=== PATIENT | female | born 1995 | race Caucasian/White ===

== ENCOUNTER → 2019-07-22 12:46 | Outpatient (CLI) | payer BC, SELFPAY ==
--- NOTE | 2019-07-22 12:54 | US_ITS ---
PROCEDURE: US TRANSVAGINAL CLINICAL INDICATION: PCOS Week gene, facial hair COMPARISON: No exams were available for comparison FINDINGS: UTERUS: 7 x 4 x 4 cm with a combined endometrial thickness of 11 mm. This is upper limits of normal. LEFT OVARY: 4.3 x 2.9 x 2.8 cm with a total volume of 18.6 mL. There is a 2.4 cm left ovarian cyst RIGHT OVARY: 3.7 x 3.2 x 2.3 cm with a total volume of 13.75 cm with small follicles noted. No cul-de-sac fluid. IMPRESSION: Ovaries are enlarged bilaterally with volumes of greater than 12 mL. There are multiple small right ovarian follicles. These findings may be seen with polycystic ovaries. Endometrium upper limits of normal at 11 mm Dictated by: Sebastien Putnam MD 07/22/2019 15:59 Electronically signed by Sebastien Putnam MD in [place] 07/22/2019 15:59
== END ==
PROVIDERS: PCP Nurse Practitioner Family; Visit Provider Nurse Practitioner Family
DX: E28.2 Polycystic ovarian syndrome (principal)
CPT/HCPCS: 76830

== ENCOUNTER 2022-04-19 11:32 | Emergency (ER) | payer MEDICAID, SELFPAY ==
[2022-04-19 11:40] VITALS: BP 133/83; PULSE 86; RESP 19; TEMP 36.7; O2SAT 97; BMI 51.0
--- NOTE | 2022-04-19 12:03 | HMH.EDUTC ---
[place] Disposition Clinical Impression: Anxiety Disposition: Home, Self-Care Condition on Discharge: Good Instructions: DI for Anxiety -- Adult, DI for Palpitations Additional Instructions: Make sure to wear the Holter monitor for the time requested and follow up with your Family Doctor for further treatment and evaluation Return if needed Straight to ER if fluttering returns, chest pain or any life threatening symptoms Follow up with Family Doctor as instructed in the [facility] Referrals: Goldy Ahumada MD [Primary Care Provider] - As needed Time of Disposition: 12:30 Medical Decision Making - Antolin Inquiry Pt receiving controlled substance: No Antolin was queried for this patient: No Vital Signs: 04/19/22 11:40 04/19/22 12:40 Temperature 98.1 F 98.1 F Temperature Source Oral Pulse Rate 86 Pulse Rate [Right Brachial] 86 Respiratory Rate 19 19 Blood Pressure 133/83 Blood Pressure [Right Arm] 133/83 Blood Pressure Mean [Right Arm] 99 Blood Pressure Source [Right Arm] Automatic Cuff Blood Pressure Position [Right Arm] Sitting 02 Sat by Pulse Oximetry 97 Oxygen Delivery Method Room Air Orders (Tests/Meds): ORDERS Category Date Time Status Holter Monitor Req by Nse/ Stat Y 04/19/22 12:19 Ordered - ECG Data Tracing #1 I reviewed this ECG and interpreted as documented below: ECG initial impression date: 04/19/22 ECG initial impression time: 13:00 ECG normal with no acute: arrhythmias, ischemia, conduction abnormalities, chamber hypertrophy Normal Sinus Rhythm: Yes Additional Comments: EKG viewed by me and Lisette Srinivasan from Cardiology NSR ECG compared to prior tracings: there are no prior tracings available for comparison Medical Decision Narrative: Discussed with patient and recommended that patient be transferred back to ED for further work up and evaluation and patient declined States that she is not having any symptoms at this time and just wanted to get an EKG done Patient aware of risks and even and still declined [place] HPI - General Stated complaint: anxiety heart flutters Time Seen by Provider: 04/19/22 12:04 Mode of Arrival: Ambulatory Source of Information: Patient Limitations: No Limitations Description of Symptoms (Recalled from Triage Doc. by RN): PATIENT REPORTS HER HEART HAS BEEN FLUTTERING ON AND OFF X 2 WEEKS, BUT STATES IT WAS MORE CONSISTANT YESTERDAY. SHE STATES SHE HAS ANXIETY AND HAS BEEN HAVING A BIT MORE STRESS LATELY HEENT Symptoms (Recalled from RN notes): No Resp Symptoms (Recalled from RN notes): No Skin Symptoms (Recalled from RN notes): No MS Symptoms (Recalled from RN notes): No Functional Status (Recalled from RN notes): WNL - History of Present Illness Provider Complaint: Patient states that she has felt like her heart has been fluttering on and off for about 2 weeks State that she had several episodes yesterday and not having any at this moment but wanted to get checked States that she does have anxiety and has been under some stress - Related Data Allergies Allergy/AdvReac Type Severity Reaction Status Date / Time No Known Allergies Allergy Verified 04/19/22 11:58 - Worker's Comp Is this a Worker's Comp case?: No [facility] History - Hepatitis A Screen Attestation statement:: This patient has been screened for Hepatitis A risk factors. I have reviewed the patient's past medical history: Yes - Social History Alcohol Intake: never Occupational Status: other ROS Obtained: Yes All systems reviewed & no additional complaints, Yes Systems reviewed as appropriate & no additional complaints - Constitutional Constitutional: Reports system reviewed and no additional complaints, except as docu - Cardiovascular Cardiovascular: Reports system reviewed and no additional complaints, except as docu, Denies chest pain, Denies dyspnea, Reports other Comments: Reports felt like her heart flutters at times on and off for 2 weeks not having
--- NOTE | 2022-04-19 12:09 | ECG_ITS ---
APPROVED REPORT Exam: Resting ECG HR:79 bpm ECG Measurements Heart Rate 79 AXES AZ 141 P 26 QRSd 93 QRS 25 QT 356 T 17 QTc 390 Conclusion SINUS RHYTHM LOW QRS VOLTAGE IN PRECORDIAL LEADS [QRS DEFLECTION < 1.0 mV IN CHEST LEADS] BORDERLINE ECG UNCONFIRMED REPORT Electronically signed by : Goldy Ahumada MD 04/20/2022 21:03:04
--- NOTE | 2022-04-19 12:24 | PC.NURSE ---
NOTIFIED RT FOR NEED OF A HOLTER MONITOR FOR PATIENT. RT STATED THAT THEY CURRENTLY HAVE NO HOLTER MONITORS AVAILABLE AND THERE ARE 3-4 PEOPLE WAITING FOR ONE. Orlando SILVEIRA APRN MADE AWARE AT THIS TIME
[2022-04-19 12:40] VITALS: BP 133/83; PULSE 86; RESP 19; TEMP 36.7; O2SAT 97
== END 2022-04-19 12:45 | disposition home or self-care (01) ==
PROVIDERS: Emergency Provider Nurse Practitioner; PCP Internal Medicine Adolescent Medicine
DX: F41.9 Anxiety disorder, unspecified (principal)
CPT/HCPCS: 93005; 99212; G0463

== ENCOUNTER → 2023-01-17 07:25 | Outpatient (CLI) | payer MEDICAID, SELFPAY ==
--- NOTE | 2023-01-17 07:26 | US_ITS ---
FINAL REPORT CLINICAL HISTORY: pcos FINDINGS: Transvaginal sonographic images of the pelvis were obtained. The uterus measures 6.7 x 4.7 x 3.2 cm. The endometrium measures 5 mm, which is within normal limits. No uterine mass is identified. The right ovary measures 3.2 cm. It is not well visualized but no mass is identified. The left ovary measures 2.7 cm in length. Multiple small follicles are seen on the left. Normal blood flow seen to the ovaries. There is no evidence of free fluid. IMPRESSION: No acute abnormality identified. Right ovary not well visualized but no mass is identified. Reviewed, Interpreted and Dictated by Dannie Jerome III, MD Transcribed by Dennise Santoyo Authenticated and [facility]
== END ==
PROVIDERS: PCP Family Medicine; Visit Provider Obstetrics & Gynecology
DX: E28.2 Polycystic ovarian syndrome (principal)
CPT/HCPCS: 76830

== ENCOUNTER 2024-06-16 10:32 | Emergency (ER) | payer MEDICAID, SELFPAY ==
[2024-06-16 10:45] VITALS: BP 136/79; PULSE 70; RESP 18; TEMP 36.7; O2SAT 96; BMI 53.6
--- NOTE | 2024-06-16 10:58 | ED_ITS ---
Discharge Plan Disposition Patient Disposition: Home, Self-Care Condition: Good Prescriptions Prescriptions: New azithromycin [Zithromax Z-Timmy] 250 mg tablet See Rx Instructions .ROUTE .COMPLEX 5 Days Qty: 6 0RF Rx Instructions: For 250 mg dose pack: take 500 mg today (day 1), then 250 mg for 4 days (days 2-5) albuterol sulfate [Proventil HFA] 90 mcg/actuation HFA aerosol inhaler 2 puff inhalation Q6H PRN (Reason: shortness of breath or wheezing) Qty: 8.5 0RF promethazine-DM 6.25-15 mg/5 mL syrup 5 ml PO Q6H PRN (Reason: cough) Qty: 118 0RF No Action cyanocobalamin (vitamin B-12) 1,000 mcg capsule 1,000 mcg PO DAILY cetirizine 10 mg tablet 10 mg PO DAILY omeprazole 40 mg capsule,delayed release(DR/EC) 40 mg PO DAILY folic acid 1 mg tablet 1 mg PO DAILY propranolol 20 mg tablet 20 mg PO DAILY escitalopram oxalate 20 mg tablet 20 mg PO DAILY Referrals Follow up/Referrals: Julian Romeo MD [Primary Care Provider] - See instructions Activity Restrictions/Add. Instructions Additional Instructions/Restrictions: * Start antibiotic today. Be sure to complete entire prescription even if feeling better * Monitor temp. Tylenol every 4 hours as needed and / or ibuprofen every 6 hours as needed ( As long as your primary care physician has told you that it ok to take both. For fever/aches/pains ER if no less than 101 despite Tylenol or Motrin * Humidifier/vaporizer or hot steamy shower * Inhaler every 4-6 hours as needed like we discussed. If unsure how to use it, ask pharmacist to demonstrate how. Should help open airways and improve cough, wheezing, and shortness of breath * Mucinex during the day for your cough and cough suppressant only at night. Be sure to drink lots of water. Insurance may not cover a prescriptions for mucinex. Might be cheaper to get 400mg tablets and take 2 tablet in the morning, mid-day and evening with lots of water. *Promethazine DM cough syrup will cause drowsiness. Use only at night. No driving, operating machinery or caring for small children after taking it Follow up IMMEDIATELY for new or worsening of symptoms OR no noticeable improvement over the next 48-72 hours. 911 immediately for any life threatening symptoms such as chest pain or difficulty breathing Clinical Impressions Clinical Impression: Bronchitis Instructions Patient Instructions: Acute Bronchitis, Albuterol Print Language Print Language: Citizen Of [place] Discharge ED Provider: Kira Roy [facility] HPI General Stated complaint: cough, congestion Mode of Arrival: Ambulatory Source of Information: Patient Limitations: No Limitations Time Seen by Provider: 06/16/24 10:58 Description of Symptoms (Recalled from Triage Doc. by RN): PATIENT C/O PRODUCTIVE COUGH X 2 WEEKS. SHE STATES RECENTLY SHE HAS ALSO DEVELOPED SOME CONGESTION AND POSSIBLE WHEEZING HEENT Symptoms (Recalled from RN notes): Yes Resp Symptoms (Recalled from RN notes): Yes Skin Symptoms (Recalled from RN notes): No MS Symptoms (Recalled from RN notes): No Functional Status (Recalled from RN notes): WNL History of Present Illness Provider Complaint: Patient states that she has been sick for about 2 weeks States that she has been having a cough that is productive at times, thinks she may have a little wheeze at times, feels like she is getting some nasal congestion States she took some left over amoxicillin last week and it helped some but now it is back so she came in to get checked Related Data Home Medications ?Medication ?Instructions ?Recorded ?Confirmed cyanocobalamin (vitamin B-12) 1,000 mcg PO DAILY 11/21/22 06/16/24 1,000 mcg capsule cetirizine 10 mg tablet 10 mg PO DAILY 06/16/24 06/16/24 escitalopram oxalate 20 mg tablet 20 mg PO DAILY 06/16/24 06/16/24 folic acid 1 mg tablet 1 mg PO DAILY 06/16/24 06/16/24 omeprazole 40 mg capsule,delayed 40 mg PO DAILY 06/16/24 06/16/24 release propranolol 20 mg tablet 20 mg PO DAILY 06/16/24 06/16/24 Previous Rx's ?Medication ?Instructions ?Recorded albuterol sulfate 90 mcg/actuation 2 puff inhalation Q6H PRN 06/16/24 aerosol inhaler (Proventil HFA) shortness of breath or wheezing #8.5 grams azithromycin 250 mg tablet See Rx Instructions PO .COMPLEX 5 06/16/24 (Zithromax Z-Timmy) days #6 tabs promethazine-DM 6.25 mg-15 mg/5 mL 5 ml PO Q6H PRN cough #118 mL 06/16/24 oral syrup Allergies Allergy/AdvReac Type Severity Reaction Status Date / Time No Known Allergies Allergy Verified 04/08/24 14:05 Worker's Comp Is this a Worker's Comp case?: No [facility] Disclaimer: The information contained in this section may have been updated after the patient was seen, as this information can be updated by other users. Medical History Morbid obesity with BMI of 50.0-59.9, adult PCOS (polycystic ovarian syndrome) GERD (gastroesophageal reflux disease) Surgical History History of placement of ear tubes Family History Father Hypertension Social History Smoking Status: Never smoker alcohol intake: never substance use type: denies use current occupational status: employed Travel in the last 8 weeks: None household members: significant other housing: house ROS Obtained: Yes All systems reviewed & no additional complaints except as documented and Yes Systems reviewed as appropriate & no additional complaints except as documented Constitutional Constitutional: Reports system reviewed and no additional complaints, except as documented and Reports as per HPI ENT Ears, Nose, Mouth, and Throat: Reports system reviewed and no additional complaints, except as documented, Reports as per HPI, Reports nasal congestion and Reports sinus pressure Cardiovascular Cardiovascular: Reports system reviewed and no additional complaints, except as documented and Reports as per HPI Respiratory Respiratory: Reports system reviewed and no additional complaints, except as documented, Reports as per HPI, Denies shortness of breath, Reports chest congestion and Reports cough Gastrointestinal Gastrointestingal: Reports system reviewed and no additional complaints, except as documented and as per HPI Physical Exam General General appearance: alert and in no apparent distress ENT ENT exam: Present mucous membranes moist Expanded ENT Exam Nose exam: Present sinus tenderness Throat exam: Present other (PND) Respiratory Respiratory exam: Present normal lung sounds bilaterally; Absent respiratory distress or wheezes Cardiovascular Cardiovascular exam: Present regular rate, normal rhythm and normal heart sounds Abdominal Exam Abdominal exam: Present soft and normal bowel sounds; Absent distention or tenderness Neurological Exam Neurological exam: Present alert, oriented X3 and normal gait Medical Decision Making Antolin Inquiry Pt receiving controlled substance: No Antolin was queried for this patient: No Vital Signs: 06/16/24 10:45 Temperature 98.0 F Temperature Source Oral Pulse Rate [Left Brachial] 70 Respiratory Rate 18 Blood Pressure [Left Arm] 136/79 Blood Pressure Mean [Left Arm] 98 Blood Pressure Source [Left Arm] Automatic Cuff Blood Pressure Position [Left Arm] Sitting 02 Sat by Pulse Oximetry 96 Oxygen Delivery Method Room Air Medical Decision Narrative: Patient states that she is unable to take steriods States that she doesnt remember why but does not take them Medication discussed with pharmacy
[2024-06-16 11:15] VITALS: BP 136/79; PULSE 70; RESP 18; TEMP 36.7; O2SAT 96
== END 2024-06-16 11:19 | disposition home or self-care (01) ==
PROVIDERS: Emergency Provider Nurse Practitioner; PCP Family Medicine
DX: J20.9 Acute bronchitis, unspecified (principal); R09.81 Nasal congestion; R05.9 Cough, unspecified
CPT/HCPCS: 99212; 99214; G0463

== ENCOUNTER 2024-08-05 12:26 | Outpatient (CLI) | payer MEDICAID, SELFPAY ==
[2024-08-05 16:25] LABS: Basophils # 0.1 K/mm3 (0-0.2); Eosinophils # 0.1 K/mm3 (0.0-0.4); Eosinophils % 1.8 % (0.1-12.0); Hematocrit 39.3 % (37.0-47.0); Hemoglobin 13.3 g/dL (12.2-16.2); Lymphocytes # 2.5 K/mm3 (0.7-4.5); Lymphocytes % 40.9 % (10-50); Mean Corpuscular HGB Conc 33.8 g/dL (31.8-35.4); Mean Corpuscular Hemoglobin 28.7 pg (27.0-31.2); Mean Corpuscular Volume 85.1 fl (81-99); Mean Platelet Volume 7.9 fl (7.4-10.4); Monocytes # 0.4 K/mm3 (0.1-1.0); Monocytes % 6.2 % (1.7-9.3); Neutrophils % 50.1 % (37.0-80.0); Platelet Count 392 K/mm3 (142-424); Red Blood Count 4.62 M/mm3 (4.20-5.40)
[2024-08-05 16:54] LABS: Alanine Aminotransferase 24 U/L (12-78); Albumin Level 4.3 g/dl (3.5-5.0); Albumin/Globulin Ratio 1.4 (1.1-1.8); Alkaline Phosphatase 93 U/L (38-126); Anion Gap 9.9 mEq/L (5-15); Aspartate Amino Transferase 29 U/L (14-36); Bilirubin,Total 0.6 mg/dl (0.2-1.3); Blood Urea Nitrogen 11 mg/dl (7-17); Calcium 9.1 mg/dl (8.4-10.2); Carbon Dioxide 28 mmol/L (22.0-30.0); Chloride 104 mmol/L (98-107); Chol/HDL Ratio 3.9 (1-3.5); Cholesterol 171 mg/dl (140-200); Estimated Glomerular Filt Rate 118 ml/min (>60); GFR (African American) 143 ML/MIN (>60); Globulin 3.1 g/dL (1.3-3.2); Glucose 62 mg/dl (74-100); HDL Cholesterol 44 mg/dl (40-60); Potassium 4.9 mmoL/L (3.5-5.1); Sodium 137 mmol/L (136-145); Total Protein,Serum 7.4 g/dl (6.3-8.2); Triglycerides 130 mg/dl (30-150); VLDL Cholesterol 26 mg/dL (0-40)
[2024-08-05 17:05] LABS: 25-OH Vitamin D, Total 19.6 ng/mL (30-100); Direct LDL Cholesterol 104.56 mg/dL (100-129)
[2024-08-05 17:21] LABS: Thyroid Stimulating Hormone 3.67 uIU/mL (0.465-4.68)
[2024-08-05 17:39] LABS: Hemoglobin A1C 5.5 % (4.0-6.0)
[2024-08-05 19:05] LABS: HIV (1&2) Antibody Rapid NONREACTIVE (NONREACTIVE)
[2024-08-06 08:33] LABS: Estradiol 29.2 pg/mL (.); FSH 6.3 mIU/mL (.); LH 9.7 mIU/mL (.); Progesterone 0.2 ng/mL (.); Testosterone,Total 36 ng/dL (13-71)
[2024-08-06 11:59] LABS: HCV Ab Non Reactive (Non Reactive)
[2024-08-08 15:58] LABS: Estrogen 138 pg/mL (.)
== END 2024-08-05 23:59 | disposition home or self-care (01) ==
LOC: LAB.DROPOF 08-06 12:26
PROVIDERS: PCP Family Medicine; Visit Provider Family Medicine
DX: E28.2 Polycystic ovarian syndrome (principal); F41.9 Anxiety disorder, unspecified; J40 Bronchitis, not specified as acute or chronic
CPT/HCPCS: 80050; 80053; 80061; 82306; 82670; 82672; 83001; 83002; 83036; 84144; 84403; 84443; 85025; 86803; 87389

== ENCOUNTER 2025-07-01 09:05 | Outpatient (CLI) | payer MEDICAID, SELFPAY ==
--- OUTSIDE RECORDS SUMMARY | 2025-07-02 08:52 | XMS_ITS | Clinical Summary ---
Author Organization [facility] Address [address] [place] [address] Care Team Providers Care Oil Pipe Inspector Helper Name Role Phone Provider, No Known Primary Care Provider Unavail able Allergies No known active allergies Medications escitalopram (LEXAPRO) 10 MG tablet Take 10 mg by mouth Daily. Active omeprazole (priLOSEC) 20 MG capsule Take by mouth Daily. Active Loratadine (CLARITIN) 10 MG capsule Take by mouth. Active ibuprofen (ADVIL,MOTRIN) 800 MG tabletIndication s:Exudative pharyngitis,Feve r and chills Take 1 tablet by mouth Every 8 (Eight) Hours As Needed for Mild Pain . 90 tablet 09/02/2018 Active amoxicillin-clav ulanate (AUGMENTIN) 875-125 MG per tabletIndication s:Exudative pharyngitis Take 1 tablet by mouth 2 (Two) Times a Day. 20 tablet 09/02/2018 Active Active Problems No known active problems Social History Tobacco Use Types Packs/Day Years Used Date Smoking Tobacco: Never Assessed Abuse Screen Answer Date Recorded Unsafe at Home or Work/School Not on file Feels Threatened by Someone? Not on file 06/2023 Does Anyone Keep You from Co ntacting Others or Doint Things Outside the Home? Not on file 07/10/2023 Physical Sign of Abuse Present Not on file 1 Housing Stability Answer Date Recorded Current Living Arrangements Not on file 06/2023 Potentially Unsafe Housing Conditions Not on salvador e 07/10/2023 Family and Community Support Answer Fernando e Recorded Help with Day-to-Day Activities Not on file 07/10/2023 Lonely or Isolated Not on file 07/10/2023 Employment Answer Date Recorded Do you want help finding or keeping work or a tho b? Not on file 07/10/2023 Disabilities Answer Date Recorded Concentrating, Remembering, or Making Decisions Difficulty Not on file 07/10/2023 Doing Errands Independently Difficulty Not on fi le 07/10/2023 Education Answer Date Recorded Help with school or training? Not on file Preferred Language Not on file 07/10/2023 Comments No Sex and Gender Information Value Date Recorded Sex Assigned at Not on file Legal Sex Female 1:34 PM EDT Gender Identity Not on file Sexual Orientation Not on file Last Filed Vital Signs Vital Sign Reading Time Taken Comments Blood Pressure 137/73 09/02/2018 2:58 PM EST Pulse 132 09/02/2018 2:58 PM EST Temperature 38.1 C (100.6 F) 09/02/2018 2:58 PM EST Respiratory Rate 12 09/02/2018 2:58 PM EST Oxygen Saturation 98% 09/02/2018 2:58 PM EST Inhaled Oxygen Concentration - - Weight 121 kg (266 lb 3.2 oz) 09/02/2018 2:58 PM EST Height 160 cm (5' 3 ) 09/02/2018 2:58 PM EST Body Mass Index 47.16 09/02/2018 2:58 PM EST Plan of Treatment Health Maintenance Due Date Last Done Comments Annual Gynecologic Pelvic an d Breast Exam 1995 TDAP/TD VACCINES (1 - Tdap) 2014 ANNUAL PHYSICAL 04/26/2017 HEPATITIS C SCREENING 04/26/2017 INFLUENZA VACCINE 05/02/2025 Pneumococcal Vaccine 0-49 Aged Out No longer eligible based on patient's age to complete this topic Insurance PPO Care Teams Oil Pipe Inspector Helper Relationship Specialty Start Date End Date Provider, [place] [address] PCP - General 04/26/17
--- OUTSIDE RECORDS SUMMARY | 2025-07-02 08:52 | XMS_ITS | Patient Health Record ---
Author Organization [facility] Address [address] [facility] [address] [place] [address] Care Team Providers Care Butt Welder Name Role Phone Monik Hannon Unavailable [phone] Reason For Referral No Information Social History Social History Sexual History: Social Info Question Answer Notes Sexual History Had sex in the past 12 months (vaginal, oral, or anal)? Yes Drugs/Alcohol: Social Info Question Answer Notes Drugs Have you used drugs other than those for medical reasons in the past 12 months? No Alcohol Screen Did you have a drink containing alcohol in the past year? Yes Points 0 Interpretation Negative Tobacco Use: Social Info Question Answer Notes Tobacco Use/Smoking Are you a former smoker Tobacco use other than smoking: Are you an other tobac co user? No Problems Problem Type SNOMED Code ICD Code Onset Dates Problem Status W/U Status Risk Notes Problem Polycystic bilateral ovaries (disorder) (163742010) Bilateral polycystic ovarian syndrome (E28.2) 10/05/19 22 Active confirmed Polycystic ovarian disease Plan Of Treatment No Information Insurance Providers Payer Name Payer Address Payer Phone Subscriber Number Group Number Insured Name Patient Relationship to Insured Coverage Start Date Coverage End Date [employer] [address] [address] [place], [place] [id number] Autumn Moct[place]uma Self - patient is the insured Medical (General) History Medical History History ICD Code propranolol omeprazole magnesium Zyrtec B12 Lexapro folic acid
== END 2025-07-01 23:59 | disposition home or self-care (01) ==
LOC: LAB.DROPOF 07-02 08:48
PROVIDERS: PCP Obstetrics & Gynecology; Visit Provider Obstetrics & Gynecology
DX: Z34.90 Encounter for supervision of normal pregnancy, unspecified, unspecified trimester (principal); N92.6 Irregular menstruation, unspecified; Z3A.00 Weeks of gestation of pregnancy not specified
CPT/HCPCS: 84144; 84702

== ENCOUNTER 2025-08-25 08:15 | Outpatient (CLI) | payer MEDICAID, SELFPAY ==
[2025-08-25 20:47] LABS: Hepatitis C Ab Qual. W/ RFX NEGATIVE (Negative)
[2025-08-26 09:00] LABS: Hematocrit 42.2 % (37.0-47.0); Hemoglobin 12.6 g/dL (12.2-16.2); Immature Granulocytes % 0.2 %; Mean Corpuscular HGB Conc 29.9 g/dL (31.8-35.4); Mean Corpuscular Hemoglobin 27.5 pg (27.0-31.2); Mean Corpuscular Volume 92.1 fl (81-99); Nucleated Red Blood Cells % 0 %; Platelet Count 407 K/mm3 (142-424); Red Blood Count 4.58 M/mm3 (4.20-5.40); Red Cell Distribution Width-SD 48.5 fL; White Blood Count 5.8 K/mm3 (4.8-10.8)
[2025-08-26 09:11] LABS: Alanine Aminotransferase 23 U/L (12-78); Albumin Level 4.2 g/dl (3.5-5.0); Albumin/Globulin Ratio 1.4 (1.1-1.8); Alkaline Phosphatase 112 U/L (38-126); Anion Gap 12.9 mEq/L (5-15); Aspartate Amino Transferase 28 U/L (14-36); Bilirubin,Total 0.5 mg/dl (0.2-1.3); Blood Urea Nitrogen 15 mg/dl (7-17); Calcium 9.4 mg/dl (8.4-10.2); Carbon Dioxide 24 mmol/L (22.0-30.0); Chloride 104 mmol/L (98-107); Creatinine,Serum 0.70 mg/dl (0.52-1.04); Estimated Glomerular Filt Rate 98 ml/min (>60); GFR (African American) 119 ML/MIN (>60); Globulin 3.1 g/dL (1.3-3.2); Glucose 79 mg/dl (74-100); Potassium 4.9 mmoL/L (3.5-5.1); Sodium 136 mmol/L (136-145); Total Protein,Serum 7.3 g/dl (6.3-8.2)
[2025-08-26 09:19] LABS: Hemoglobin A1C 5.8 % (4.0-6.0)
[2025-08-26 09:28] LABS: Free Thyroxine Index 3.0 ug/dL (5.93-13.13); T4 (Thyroxine) 9.0 ug/dl (5.53-11.0); Triiodothryronine (T3) Uptake 33 % (23.5-40.5)
[2025-08-26 09:42] LABS: Thyroid Stimulating Hormone 2.95 uIU/mL (0.465-4.68)
[2025-08-26 10:20] LABS: Vitamin B12 > 1000 pg/mL (239-931)
--- OUTSIDE RECORDS SUMMARY | 2025-08-26 10:39 | XMS_ITS | Clinical Summary ---
Author Organization [facility] Address [address] [place] [address] Care Team Providers Care Banking Assistant Name Role Phone Provider, No Known Primary [...] complete this topic Insurance PPO Care Teams Banking Assistant Relationship Specialty Start Date End Date Provider, [place] [address] PCP - General 04/26/17
--- OUTSIDE RECORDS SUMMARY | 2025-08-26 10:40 | XMS_ITS | Data Portability ---
Author Organization [facility] [place] [facility] [place] Address [address] [place] [address] Assessment No assessment recorded. Plan of Treatment Reminders Order Date Submit Date Provider Last Modified By Organization Details Last Modified Time Details Appointments None recorded. Lab rapid SARS CoV 2 Ag, QL, [place], upper respiratory specimen [address], [address], 17:45:29 rapid flu (A+B) [address], [address], 4 17:45:30 Referral None recorded. Procedures None recorded. Surgeries None recorded. Imaging None recorded. Medication Orders None recorded. Patient TargetsNo targets recorded. Patient InstructionsNo instructions recorded. Reason for Referral None Reported. Results Created Date Observation Date Name Description Value Unit Range Abnormal Flag Note LastModifiedBy Organization Detail LastModifiedTime 06/04/2006/04/2024 rapid flu (A+B) Flu A negati ve Not Available [address], [address], 06/04/2024 17:06:00 06/04/20 24 06/04/2024 rapid flu (A+B) Flu B negati ve Not Available [address], [address], 06/04/2024 17:06:00 06/04/20 24 06/04/2024 rapid SARS CoV 2 Ag, QL, [place], upper respi rator y speci men SARS CoV Ag negati ve Not Available [address], [address], 06/04/2024 17:05:41 Result Notes None recorded. Problems Name Problem SNOMED Code Status Onset Date Resolution Date Notes Provider Name and Address Organization Details Recorded Time Anxiety disorder 330462221 Active 2018 Not Available [facility] 2 20:46:07 Headache 08184134 Completed 201804/30/2019 Problem Code: R51; Problem Code Type: ICD-10; Not Available [facility] 2 20:46:09 Acute pharyngi tis 162471633 Active 2018 Not Available [facility] 2 20:46:08 Acute pharyngi tis 399187390 Completed 201807/21/2019 Not Available [facility] 2 20:46:08 Seasonal allergic rhinitis 244367852 Active 2018 Problem Code: J30.2; Problem Code Type: ICD-10; Not Available [facility] 2 20:46:08 Sampling of vagina for Papanico laou smear Active 2018 Problem Code: Z01.419; Problem Code Type: ICD-10; Not Available [facility] 2 20:46:12 Drug administ ration observat ions 680506399 Active 2018 Not Available [facility] 2 20:46:12 Acute sinusiti s 06957433 Active 2018 Problem Code: J01.90; Problem Code Type: ICD-10; Not Available [facility] 2 20:46:07 Snoring 41013433 Active 2018 Problem Code: R06.83; Problem Code Type: ICD-10; Not Available [facility] 2 20:46:11 Panic disorder without agorapho fabrice 53436956 Active 2019 Problem Code: 300.01; Problem Code Type: ICD-9; Not Available [facility] 2 20:46:09 Panic disorder 774967210 Active 2019 Problem Code: F41.0; Problem Code Type: ICD-10; Not Available [facility] 2 20:46:05 Generali zed anxiety disorder 92784660 Active 2019 Problem Code: F41.1; Problem Code Type: ICD-10; Not Available [facility] 2 20:46:06 Acute sinusiti s 37573299 Completed 201911/03/2020 Problem Code: J01.90; Problem Code Type: ICD-10; Not Available [facility] 2 20:46:09 Body mass index 40+ - severely obese 248728837 Active 2019 Not Available [facility] 2 20:46:09 Influenz a 6809091 Active 2019 Problem Code: J10.1; Problem Code Type: ICD-10; Not Available [facility] 2 20:46:08 5,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 Active 2019 Problem Code: E72.12; Problem Code Type: ICD-10; Not Available [facility] 2 20:46:05 Disorder of respirat ory system suspecte d 273869653 Active 2020 Not Available [facility] 2 20:46:09 Headache 29946343 Completed 202002/08/2021 Not Available [facility] 2 20:46:09 Chronic allergic conjunct ivitis 28443999 Active 2020 Problem Code: H10.45; Problem Code Type: ICD-10; Not Available [facility] 2 20:46:07 Acute suppurat shukri otitis media 164821057 Active 2020 Not Available [facility] 2 20:46:07 Problem Notes None recorded. Procedures Surgical History Date Name Laterality Status Provider Name and Address Organization Details Recorded Time 9 tympanostomy completed Not Available [facility] 022 22:56:16 Imaging Results None recorded. Procedure Notes None recorded. Medical Equipment None Reported. Allergies Allergen ID Allergen Name Allergen Category Reaction Reaction Severity Criticality Documentation Date Start Date Code Code System Note Provider Name and Address Organization Details Recorded Time 27074 fluoxetin e hydrochlo ride medicatio n headache moderate Not available 06/07/2022 33468 4 RxNorm Aller gyCod e: '8256 4002' ; Aller gyNam e: 'Fluo xetin e'; Aller gyCon ceptT ype: 'SNOM ED'; Not Available [facility] 22:56:15 Medications Name Sig Start Date Stop Date Status Note LastModified by Organization Details LastModified Time Singulair 10 mg tablet take 1 tablet (10 mg) by oral route once daily in the evening 06/04 completed Not Available Not Available Not Available amoxicillin 500 mg capsule active Not Available Not Available Not Available Augmentin 875 mg-125 mg tablet take 1 tablet by oral route every 12 hours x 10 days 06/04 completed Not Available Not Available Not Available promethazin e-DM 6.25 mg-15 mg/5 mL oral syrup TAKE 5 ML BY MOUTH EVERY 6 HOURS NEEDED FOR COUGH active Not Available Not Available No t Available citalopram 40 mg tablet Take 1 tablet(s) by mouth daily 07/24 completed Not Available Not Available Not Available azithromyci n 250 mg tablet TAKE 2 TABLETS BY MOUTH ON DAY 1, AND THEN TAKE 1 TABLET BY MOUTH ONCE A DAY ON DAY 2 THROUGH DAY 5 active Not Available Not Available No t Available fluconazole 150 mg tablet active Not Available Not Available Not Available Claritin 10 mg tablet take 1 tablet (10 mg) by oral route once daily 06/17 completed Not Available Not Available Not Available clonazepam 1 mg tablet take 1 tablet (1 mg) by oral route 2 times per day 06/04 completed Not Available Not Available Not Available hydroxyzine pamoate 50 mg capsule Take 1 capsule every 8 hrs as needed for anxiety active Not Available Not Available No t Available hydroxyzine HCl 50 mg tablet take 1 tablet (50 mg) by oral route q 6 hours prn panic attack 11/11 completed Not Available Not Available Not Available Tamiflu 75 mg capsule take 1 capsule (75 mg) by oral route 2 times per day 12/16 completed Not Available Not Available Not Available omeprazole 40 mg capsule,del ayed release take 1 capsule (40 mg) by oral route once daily before a meal active Not Available Not Available No t Available amoxicillin 500 mg tablet take 1 tablet (500 mg) by oral route every 12 hours for 10 days 12/16 completed Not Available Not Available Not Available propranolol 10 mg tablet Take 1 tab PO qAM and 2 tabs PO daily after lunch 02/09 completed Not Available Not Available Not Available citalopram 20 mg tablet Take 1 tablet by mouth once daily 04/08 completed Not Available Not Available Not Available famotidine 20 mg tablet 06/04 completed Not Available Not Available Not Available buspirone 30 mg tablet take 1 tablet (30 mg) by oral route 2 times per day 06/04 completed Not Available Not Available Not Available ranitidine 150 mg tablet 1 po prn up to bid 04/30 completed Not Available Not Available Not Available buspirone 10 mg tablet take 1 tablet (10 mg) by oral route 2 times per day 05/17 completed Not Available Not Available Not Available folic acid 1 mg tablet take 1 tablet (1 mg) by oral route once daily active Not Available Not Available No t Available Zaditor 0.025 % (0.035 %) eye drops instill 1 drop into affected eye(s) by ophthalmi c route 2 times per day 06/04 completed Not Available Not Available Not Available propranolol 20 mg tablet take 1 tablet (20 mg) by oral route once daily active Not Available Not Available No t Available fluoxetine 20 mg capsule Take 1 capsule PO daily 03/18 completed Not Available Not Available Not Available fluticasone propionate 50 mcg/actuati on nasal spray,suspe nsion inhale 1 spray (50 mcg) in each nostril by intranasa l route 2 times per day active Not Available Not Available No t Available Ventolin HFA 90 mcg/actuati on aerosol inhaler INHALE 2 PUFFS BY MOUTH EVERY 6 HOURS NEEDED FOR SHORTNESS OF BREATH FOR WHEEZING active Not Available Not Available No t Available escitalopra m 20 mg tablet take 1.5 tablets (30 mg) by oral route once daily active Not Available Not Available No t Available Lexapro 10 mg tablet 1 tablet in the morning and 1 tablet in the evening 02/26 completed Not Available Not Available Not Available Junel FE 10/21 (28) 1 mg-20 mcg (21)/75 mg (7) tablet take 1 tablet by oral route once daily 06/04 completed Not Available Not Available Not Available cyanocobala min (vitamin B-12) 2019 active Not Available Not Available Not Avai lable Claritin 04/30 completed Not Available Not Available Not Available Allergy Relief (cetirizine ) 10 mg tablet TAKE 1 TABLET BY MOUTH EVERY DAY active Not Available Not Available No t Available Viibryd 40 mg tablet take 1 tablet (40 mg) by oral route once daily with food 10/11 completed Not Available Not Available Not Available Viibryd 20 mg tablet take 1 tablet (20 mg) by oral route once daily with food 09/19 completed Not Available Not Available Not Available Flonase Allergy Relief 05/17 completed Not Available Not Available Not Available Viibryd 10 mg (7)-20 mg (23) tablets in a dose pack take by oral route once daily per package direction s 06/04 completed Not Available Not Available Not Available BinaxNOW COVID-19 Ag Self Test kit Use as Directed on the Package active Not Available Not Available No t Available Vitals Date Recorded Body weight Body temperature Heart rate Oxygen saturation Body mass index (BMI) Body height Systolic And Diastolic Provider Name and Address Organization Details Last Updated DateTime 4 217388. 08 g 98.7 [degF] 82 /min 98 % 52.2 kg/m2 162.56 cm 114/78 mm[Hg] Store Eyes [facility] 16:39:04 Social History Question Answer Notes LastModified by Organizat ion Details LastModified Time Tobacco Smoking Status Never Smoker SocialHis toryQuest ion: 'Tobacco/ Alcohol/S upplement s'; SocialHis toryRespo nse: 'Never Smoker'; Not Available [facility] 06/07/2022 22:59:29 In The 14 Days Before Symptom Onset, Have You Had Close Contact With A Laboratory-confirm ed COVID-19 While That Case Was Ill? Yes Information n ot available 06/04/2024 In The 14 Days Before Symptom Onset, Have You Had Close Contact With A Person Who Is Under Investigation For COVID-19 While That Person Was Ill? Yes Information not available 06/04/2024 Have You Been To An Area Known To Be High Risk For COVID-19? No Information not available 06/04/2024 What Was The Date Of Your Most Recent Tobacco Screening? 06/04/2024 Information not available 06/04/2024 Have You Recently Traveled Abroad? No Information not available 06/04/2024 Sex: Female Functional Status None recorded. Mental Status None recorded. Family History Nothing Reported. Medical History Condition Response Allergies (Food, seasonal, environmental ) Y Obesity Y Acid Reflux (GERD) Y Gynecological HistoryNo gynecological history recorded. Obstetrics History GPAL:G 0 P 0 0 0 0 Past Encounters Encounter ID Performer Location Encounter Start Date Encounter Closed Date Diagnosis/Indication Diagnosis SNOMED-CT Code Diagnosis ICD10 Code Diagnosis IMO Codes Diagnosis Note [id number] Octavia Prado APRN [place] [id number] [id number] 06/04/2024 16:30:09 06/04/2024 17:17:05 Cough 36270822 R05.9 Viral uppe r respiratory tract infection 502202471 J06.9 Body mass index 40+ - severely obese 089698577 Z68.43 Health Concerns Section Related Observation LastModified by Organization Detai ls LastModified Time None Recorded Concern Status LastModified by Organization Details LastModified Time None Recorded Advance Directives Directive None Recorded Payers Insurance Date Sequence Insurance Name Policy Number Policy Portillo Covered Member ID Portillo Member ID Guarantor Name 04/09/2025 1 [facility] (MEDICAID REPLACEMENT - HMO) Autumn Moctezuma [id number] Faustina Cardozo Notes Date Note Type Note Provider Name and Address Organization Details Recorded Time 06/04/2024 text/html pt here today with c/o cough x 3 days. 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 she took a home covid test and it was neg. rapid flu and covid neg. assessment WNL. pt states that she has been taking amoxicillin 500mg tid that she had at home. i advised pt to rest, increase fluids, tylenol/ibuprofen for pain. return for worsening symptoms. Octavia Prado, JACOB [address] [facility], [place], [address], [facility] [employer] 06/04/2024 17:45:51 OBGyn Episode No OBEpisode recorded.
--- OUTSIDE RECORDS SUMMARY | 2025-08-26 10:40 | XMS_ITS | Patient Health Record ---
Author Organization [facility] Address [address] [facility] [address] [place] [address] Care Team Providers Care Hydroponics Worker Name Role Phone Monik Hannon Unavailable [phone] Reason For Referral No Information Social History [...] Risk Notes Problem Polycystic bilateral ovaries (disorder) (064880951) Bilateral polycystic ovarian syndrome (E28.2) 10/05/19 22 Active confirmed Polycystic ovarian disease Plan Of Treatment No Information Insurance Providers Payer Name Payer Address Payer Phone Subscriber Number Group Number Insured Name Patient Relationship to Insured Coverage Start Date Coverage End Date [employer] [address] [address] [place], [place] [id number] Autumn Moctezuma Self - patient is the insured Medical (General) History Medical History History ICD Code propranolol omeprazole magnesium Zyrtec B12 Lexapro folic acid
[2025-08-27 09:12] LABS: Hepatitis B Surface Antigen Negative (Negative)
== END 2025-08-25 23:59 | disposition home or self-care (01) ==
LOC: LAB.DROPOF 08-26 10:34
PROVIDERS: Nurse Practitioner Family; PCP Obstetrics & Gynecology; Visit Provider Nurse Practitioner Family
DX: F31.9 Bipolar disorder, unspecified (principal); F41.9 Anxiety disorder, unspecified; Z11.59 Encounter for screening for other viral diseases; N92.6 Irregular menstruation, unspecified; Z11.4 Encounter for screening for human immunodeficiency virus [HIV]
CPT/HCPCS: 80053; 82607; 83036; 84436; 84443; 84479; 84702; 85025; 86803; 87340; 87389